=== PATIENT | male | born 1970 | race Hispanic/Latino ===

== ENCOUNTER → 2023-01-08 | Outpatient (CLI) | payer OTHER | END | disposition home or self-care (01) | LOC: RAH 15:20 | PROVIDERS: ATTEND Internal Medicine | DX: M51.26 Other intervertebral disc displacement, lumbar region (principal) | CPT/HCPCS: 72100 ==

== ENCOUNTER 2023-03-09 08:28 | Emergency (ER) | payer BC, OTHER ==
[~2023-03-09] VITALS: Ht 175.3 cm; Wt 104.3 kg
[2023-03-09 08:29] VITALS: BP 138/81; PULSE 68; RESP 18
[2023-03-09] MEDS ORDERED: FLUORESCEIN SODIUM 1 STRIP STRIP ONE (08:57)
[2023-03-09] MEDS ORDERED: TETRACAINE HCL 0.5% 4 ML OPHTH SOLN ONE (08:58)
[2023-03-09] MEDS ORDERED: KETO5DRO40 OD (09:53)
[2023-03-09] MEDS ORDERED: CILO2.5OS OS (09:53)
== END 2023-03-09 10:09 | disposition home or self-care (01) ==
LOC: EDH 08:28
DX: S05.02XA Injury of conjunctiva and corneal abrasion without foreign body, left eye, initial encounter (principal); E78.00 Pure hypercholesterolemia, unspecified; X58.XXXA Exposure to other specified factors, initial encounter; Y93.89 Activity, other specified; Y92.89 Other specified places as the place of occurrence of the external cause; Y99.8 Other external cause status

== ENCOUNTER → 2024-10-17 | Outpatient (CLI) | payer MEDICARE ==
[~2024-10-17] MED LIST: CILO2.5OS OS; KETO5DRO40 OD
[2024-10-17 10:18] LABS: CREATININE 0.6 mg/dL (0.5-1.3)
== END | disposition home or self-care (01) ==
LOC: LAB 09:43
PROVIDERS: ATTEND Internal Medicine Gastroenterology
DX: R10.31 Right lower quadrant pain (principal)
CPT/HCPCS: 36415; 82565; 84520

== ENCOUNTER → 2024-10-24 | Outpatient (CLI) | payer MEDICARE ==
[~2024-10-24] MED LIST changes: +IOHEXOL 350 MG/ML 100ML INFUS..BTL IV ONE
--- NOTE | 2024-10-24 11:23 | HMCIMG ---
CT ABDOMEN WITHOUT AND WITH CONTRAST. CT PELVIS WITHOUT AND WITH CONTRAST INDICATION: Stomach pain for one month TECHNIQUE: Routine transaxial images at 5 mm slice thickness were obtained prior to the administration of contrast material through the abdomen only, and after the intravenous infusion of 100 mL of Omnipaque 350 through the abdomen and pelvis without adverse effects. Delayed images of the abdomen and pelvis were also obtained. Coronal and sagittal reformatted imaging acquired for interpretation. Oral contrast was administered. CT was performed with one or more of the following dose reduction techniques: Automated exposure control, adjustment of the mA and/or kV according to patient size, or use of iterative reconstruction technique. COMPARISON: None FINDINGS: Diagnostic sensitivity of this examination is limited by patient motion artifact. ABDOMEN: Heart size is normal. Visible lung bases are clear. The liver is normal in size and smooth in contour without biliary duct dilation. 2.1 cm simple cyst within the anterior right hepatic lobe. The spleen is normal in size without lesions. The gallbladder appears normal. The pancreas appears normal without pancreatic duct dilation. The adrenal glands appear normal. Both kidneys appear unremarkable. Cortical nephrograms are symmetric and normal in appearance bilaterally. No significant abdominal, retrocrural or retroperitoneal adenopathy noted.No evidence for intra-abdominal free air or organized fluid collection. No aortic aneurysmal dilation or dissection identified. PELVIS: No evidence for free air or organized pelvic fluid collection. No significant pelvic adenopathy detected. Several diverticula along the sigmoid colon. Terminal ileum appears unremarkable. The appendix is absent. The urinary bladder appears unremarkable. Mild thoracolumbar spondylosis.. Extremely shallow posterior disc displacement at the L5-S1 level. IMPRESSION: Limitations as reported. Normal CT appearance of the stomach. Sigmoid diverticulosis without diverticulitis or colitis.
== END | disposition home or self-care (01) ==
LOC: RAH 09:04
PROVIDERS: ATTEND Internal Medicine Gastroenterology
DX: K57.30 Diverticulosis of large intestine without perforation or abscess without bleeding (principal); R10.31 Right lower quadrant pain; K76.89 Other specified diseases of liver
CPT/HCPCS: 74178; Q9967

== ENCOUNTER 2025-05-28 12:03 | Emergency (ER) | payer MEDICARE, OTHER ==
[~2025-05-28] VITALS: Ht 167.6 cm; Wt 102.5 kg
[~2025-05-28 12:03] MED LIST changes: -IOHEXOL 350 MG/ML 100ML INFUS..BTL IV ONE; +KETO-108 OD; -KETO5DRO40 OD
--- NOTE | 2025-05-28 12:11 | ERN ---
ED Note History of Present Illness Stated Complaint: URINARY TRACT INFECTION Chief Complaint: UTI without Fever Time Seen by MD: 12:06 Dictation: PATIENT IS A 54-YEAR-OLD MALE COMING IN TODAY WITH COMPLAINTS OF URINARY URGENCY AND FREQUENCY WITH MILD DYSURIA FOR THE LAST TWO WEEKS. NO NAUSEA NO VOMITING NO DIARRHEA NO FLANK PAIN. HE HAS ALREADY BEEN TO SEE HIS PRIMARY CARE DOCTOR, PRESCRIBED AMOXICILLIN T.I.D.. SEE FOR FURTHER EVALUATION AND TREATMENT. STATES HE HAS NOT SEEN A UROLOGIST, DENIES PROSTATE PROBLEM Allergies: Coded Allergies: No Known Allergies (Unverified Allergy, Unknown, 03/09/23) Home Meds Active Scripts Ketorolac Tromethamine (Ketorolac Tromethamine) 5 Ml Drops, 1 DROP OD QIDP PRN for PAIN, #1 BOT Prov:KANDI RAMIRES MD 03/09/23 Ciprofloxacin HCl (Ciloxan 0.3% Ophth Soln) 20 Drop/Ml Opsol, 2 DROP OS Q0THCLQ for 5 Days, #1 BOT Prov:KANDI RAMIRES MD 03/09/23 Past Medical History Past Medical History: Arthritis, High Cholesterol, Hypertension Surgical History: Appendectomy, Other Surgical History Other: BILATERAL KNEE SX RN Note Reviewed/Agreed w/PFSH: Yes Review of System Dictation CONSTITUTIONAL: NEGATIVE EXCEPT FOR HPI HEAD/FACE: NEGATIVE EXCEPT FOR HPI EENT: NEGATIVE EXCEPT FOR HPI RESPIRATORY: NEGATIVE EXCEPT FOR HPI GASTROINTESTINAL/ABDOMINAL: NEGATIVE EXCEPT FOR HPI GENITOURINARY: NEGATIVE EXCEPT FOR HPI URINARY URGENCY AND FREQUENCY WITH DYSURIA TWO WEEKS MUSCULOSKELETAL: NEGATIVE EXCEPT FOR HPI INTEGUMENTARY: NEGATIVE EXCEPT FOR HPI NEUROLOGICAL/PSYCH: NEGATIVE EXCEPT FOR HPI HEMATOLOGIC/LYMPHATIC: NEGATIVE EXCEPT FOR HPI ALL SYSTEMS NEGATIVE, EXCEPT NOTED ABOVE. 13 POINT REVIEW OF SYSTEMS ASSESSED AND ALL NEGATIVE EXCEPT FOR ABOVE. Initial Vital Sign VS Vital Signs Date Time Temp Pulse Resp B/P (MAP) Pulse Ox O2 Delivery O2 Flow Rate FiO2 05/28/25 12:06 97.7 75 16 122/74 98 Room Air 0 05/28/25 15:30 21 Physical Exam Dictation VITAL SIGNS REVIEWED GENERAL APPEARANCE: ALERT, ORIENTED X 3, NO ACUTE DISTRESS, WELL DEVELOPED, NOURISHED. OBESE HEAD AND FACE: NON-TRAUMATIC. EYES: PERRL, PINK CONJUNCTIVAS, EYELID NO TRAUMA, ANTERIOR CHAMBER WITH ARCUS SENILIS. EARS: PINNAS INTACT AND NO SIGNS OF TRAUMA OR ERYTHEMA EAR CANALS CLEAR AND NO DISCHARGE TM NO ERYTHEMA NOSE: NO DISCHARGE, NO BLEEDING. OROPHARYNX: MOUTH NORMAL, TONGUE PINK, PHARYNX CLEAR,NO ERYTHEMA, TONSILS NO EXUDATES, NO ABSCESSES NOTED, MUCOUS MEMBRANE MOIST NECK: SUPPLE, NON-TENDER, NO THYROMEGALY, NO MASSES, NO JVD, NO BRUITS BREAST:DEFERRED CHEST:NO TENDERNESS, NO CREPITUS, NO PARADOXICAL MOVEMENT, NO RETRACTIONS LUNGS:CLEAR, WELL-VENTILATED, SYMMETRIC, NO RALES, NO WHEEZING, NO RHONCHI, NO STRIDOR, GOOD BREATH SOUNDS BILATERALLY HEART: REGULAR RATE, REGULAR RHYTHM, NO MURMUR, NO GALLOPS VASCULAR: NO PERIPHERAL EDEMA, ABDOMEN: SOFT, POSITIVE BOWEL SOUNDS, NONDISTENDED, NO GUARDING, NONTENDER, NO REBOUND, NO MASSES NO HEPATOMEGALY, NO SPLENOMEGALY, NO GUILLAUME'S SIGN, NO HERNIAS. RECTAL: DEFERRED GENITAL: DEFERRED NEUROLOGICAL: NORMAL SPEECH, MOTOR FUNCTION INTACT, SENSORY FUNCTION INTACT MUSCULOSKELETAL: NECK NONTENDER, FULL RANGE OF MOTION, BACK NONTENDER, FULL RANGE OF MOTION, EXTREMITIES: NONTENDER, FULL RANGE OF MOTION SKIN: COLOR PINK, DRY, NO TURGOR, NO RASH, NO LACERATIONS, NO ABRASIONS, NO CONTUSIONS. LYMPHATIC: DEFERRED Results (Laboratory/Radiology) Laboratory/Radiology Laboratory Tests Test 05/28/25 12:15 05/28/25 12:58 White Blood Count 4.6 K/uL (4.8-10.8) L Red Blood Count 4.73 MIL/uL (4.50-6.20) Hemoglobin 14.0 g/dL (14.0-18.0) Hematocrit 42.2 % (42-54) Mean Corpuscular Volume 89.2 fL (79-99) Mean Corpuscular Hemoglobin 29.6 pg (27.0-33.0) Mean Corpuscular Hemoglobin Concent 33.2 g/dL (32.0-36.0) Red Cell Distribution Width 13.0 % (11.0-15.5) Platelet Count 206 K/uL (130-400) Mean Platelet Volume 9.7 fL (7.5-10.5) Immature Granulocyte % (Auto) 0.4 % (0-1) Neutrophils (%) (Auto) 51.7 % (40.0-77.0) Lymphocytes (%) (Auto) 32.8 % (21.0-51.0) Monocytes (%) (Auto) 9.4 % (3.0-13.0) Eosinophils (%) (Auto) 5.3 % (0.0-8.0) Basophils (%) (Auto) 0.4 % (0.0-5.0) Neutrophils # (Auto) 2.4 K/uL (1.8-7.7) Lymphocytes # (Auto) 1.5 K/uL (1.0-4.8) Monocytes # (Auto) 0.4 K/uL (0.1-1.0) Eosinophils # (Auto) 0.24 K/uL (0.00-0.70) Basophils # (Auto) 0.02 K/uL (0.00-0.20) Absolute Immature Granulocyte (auto 0.02 K/uL (0-1) Nucleated Red Blood Cells 0.0 % (0.0-0.19) Sodium Level 141 mmol/L (136-145) Potassium Level 4.1 mmol/L (3.5-5.1) Chloride Level 105 mmol/L (101-111) Carbon Dioxide Level 30 mmol/L (21-32) Blood Urea Nitrogen 6 mg/dL (7-18) L Creatinine 0.6 mg/dL (0.5-1.3) Glomerular Filtration Rate Calc 115 mL/min (>90) Random Glucose 169 mg/dL (70-105) H Lactic Acid Level 1.4 mmol/L (0.8-2.5) Total Calcium 8.2 mg/dL (8.5-10.1) L Urine Color COLORLESS (YELLOW) Urine Appearance CLEAR (CLEAR) Urine pH 7.0 (5.0-8.0) Urine Specific [place] 1.004 (1.001-1.031) Urine Protein NEGATIVE mg/dL (NEGATIVE) Urine Glucose (UA) NEGATIVE mg/dL (NEGATIVE) Urine Ketones NEGATIVE mg/dL (NEGATIVE) Urine Occult Blood NEGATIVE (NEGATIVE) Urine Nitrate NEGATIVE (NEGATIVE) Urine Bilirubin NEGATIVE mg/dL (NEGATIVE) Urine Urobilinogen 0.2 mg/dL (0.2-1.0) Urine Leukocyte Esterase NEGATIVE Lakshmi/uL Labs Reviewed?: Yes ED Course ED Course Orders Procedure Category Date Status Time Cbc With Differential LAB 05/28/25 Complete 12:08 Urinalysis Profile LAB 05/28/25 Complete 12:08 Basic Metabolic Panel LAB 05/28/25 Complete 12:08 Blood Cult SIMON 05/28/25 In Process 12:08 Lactic Acid LAB 05/28/25 Complete 12:08 Vital Signs Date Time Temp Pulse Resp B/P (MAP) Pulse Ox O2 Delivery O2 Flow Rate FiO2 05/28/25 15:30 97.5 58 17 130/80 100 Room Air* 0 21 05/28/25 12:06 97.7 75 16 122/74 98 Room Air 0 1540/PATIENT DISCHARGED HOME WITH COMPLETELY UNREMARKABLE LABS TO INCLUDE URINALYSIS. GIVEN PYRIDIUM FOR DYSURIA AND HAVE HIM FOLLOW UP WITH HIS DOCTOR Medical Decision Making MDM MDM: DIFFERENTIAL DIAGNOSIS: CYSTITIS/ACUTE CYSTITIS WITH HEMATURIA/PYELONEPHRITIS/ELECTROLYTE IMBALANCE/DEHYDRATION/ANEMIA RATIONALE: TESTS CONSIDERED AND ORDERED SECONDARY TO SHARED DECISION MAKING INCLUDE: LABS PREVIOUS OUTSIDE RECORDS REVIEWED: OLD ER VISITS. RISK OF COMPLICATION AND/OR MORBIDITY OR MORTALITY OF PATIENT MANAGEMENT: NONE MEDICATIONS-PER MEDICATION RECONCILIATION NEED FOR HOSPITALIZATION: PATIENT DOES NOT MEET CRITERIA FOR HOSPITALIZATION. NONE NEED FOR EMERGENCY MAJOR/MINOR SURGERY: NO THERE ARE NO SOCIAL CONCERNS WITH THIS PATIENT. PRESCRIPTION DRUG MANAGEMENT PYRIDIUM WHO PRESCRIPTIONS WILL INCLUDE SYMPTOMATIC CARE PATIENT'S PRIOR EXTERNAL MEDICAL RECORDS FROM OTHER ER VISITS WERE REVIEWED BY ME INDICATED. PRIOR TESTING AND RESULTS FROM PREVIOUS VISITS WERE REVIEWED. PRIOR TESTS WERE TAKEN INTO ACCOUNT WITH MEDICAL DECISION MAKING AND RESOURCE UT ILIZATION, INDEPENDENT HISTORIAN/HISTORIANS WERE USED TO OBTAIN COMPLETE MEDICAL HISTORY. I INDEPENDENTLY INTERPRETED THE TEST THAT WERE PERFORMED, RESULTS WERE REVIEWED BY ME AND CONSIDERED FINDINGS ON RADIOLOGY IF ORDERED. MEDICAL MANAGEMENT AND EXAMINATION INTERPRETATION DISCUSSIONS WERE HAD BY ME WITH OTHER QUALIFIED HEALTHCARE PROFESSIONALS INDICATED FOR THE PATIENT'S CAR E. DX & DISP Disposition: Discharge Departure Impression: Primary Impression: Dysuria Additional Impression: Mild dehydration Condition: Stable Scripts Phenazopyridine HCl (Pyridium) 200 Mg Tab 200 MG PO TIDPC for 3 Days, #9 TAB TAKE WITH FOOD TO PREVENT STOMACH UPSET. Prov: LIZZTETE BRADY [employer]ONNAGE COMPILATION CLERK 05/28/25 Additional Instructions: FOLLOW-UP WITH PRIMARY CARE PROVIDER IN 1 TO 2 DAYS. TAKE MEDICATIONS DIRECTED HERE IN THE EMERGENCY ROOM. OKAY TO CONTINUE HOME MEDICATIONS UNLESS OTHERWISE DISCUSSED DURING YOUR VISIT IN THE EMERGENCY ROOM TODAY. RETURN TO YOUR NEAREST EMERGENCY ROOM IF SYMPTOMS WORSEN OR IF THERE IS NO IMPROVEMENT. CALL 911 IF YOU NEED IMMEDIATE ASSISTANCE. TAKE TYLENOL OR MOTRIN OVE U-TIA-BHRZZNI NEEDED AND IF NO CONTRAINDICATIONS ARE PRESENT. INCREASE ORAL HYDRATION. A WOUND CULTURE OR URINE CULTURE WAS ORDERED HERE IN THE EMERGENCY ROOM DEPARTMENT PLEASE FOLLOW-UP WITH PRIMARY CARE PROVIDER AND ADVISE THEM TO GET REPEAT PORTS FROM OUR FACILITY. IF YOU HAD ANY LYNNE WRAP/SPLINTS THAT WERE APPLIED HERE, PLEASE DO NOT REMOVE THEM UNTIL YOU SEE YOUR PRIMARY CARE OR SPECIALTY. CONTINUE ALL MEDICATIONS AND TREATMENTS FROM YOUR DOCTOR. INCREASE YOUR WATER INTAKE. REMEMBER THAT URINE WERE BE TURNED ORANGE RED WITH PYRIDIUM. SEE YOUR PRIMARY CARE DOCTOR TOMORROW OR THE NEXT DAY FOR FOLLOW UP AND MANAGEMENT. Referrals: WILLIAM JIMÉNEZ MD (PCP) Time of Disposition: 15:42 I have reviewed the case, and I agree with, Diagnosis and Plan LIZZETTE BRADY May 28, 2025 12:11
[2025-05-28 12:27] LABS: IMMATURE GRANULOCYTE ABSOLUTE 0.02 K/uL (0-1); NUCLEATED RED BLOOD CELLS 0.0 % (0.0-0.19); PLATELET COUNT (AUTO) 206 K/uL (130-400); RED BLOOD CELL COUNT(AUTO) 4.73 MIL/uL (4.50-6.20); RED CELL DISTRIBUTION WIDTH 13.0 % (11.0-15.5); WHITE BLOOD COUNT (AUTO) 4.6 K/uL (4.8-10.8)
[2025-05-28 12:34] LABS: CREATININE 0.6 mg/dL (0.5-1.3); GLOMERULAR FILTR. RATE CALC 115.0 mL/min (>90); GLUCOSE,RANDOM 169.0 mg/dL (70-105); SODIUM SERUM 141.0 mmol/L (136-145); UREA NITROGEN, BLOOD 6.0 mg/dL (7-18)
[2025-05-28 13:05] LABS: APPEARANCE,URINE CLEAR (CLEAR); GLUCOSE, URINE (UA) NEGATIVE (NEGATIVE); LEUKOCYTE ESTERASE ,URINE NEGATIVE Leu/uL (NEGATIVE); NITRATE,URINE NEGATIVE (NEGATIVE); OCCULT BLOOD,URINE NEGATIVE (NEGATIVE)
[2025-05-28 13:12] LABS: ADD UA MICROSCOPIC NO
[2025-05-28 15:30] VITALS: BP 130/80; PULSE 58; RESP 17; TEMP 97.6; O2SAT 100
[2025-05-28] MEDS ORDERED: PHEN-847 PO (15:42)
== END 2025-05-28 16:02 | disposition home or self-care (01) ==
LOC: EDH 12:03
DX: R30.0 Dysuria (principal); E86.0 Dehydration; E78.00 Pure hypercholesterolemia, unspecified; I10 Essential (primary) hypertension; M19.90 Unspecified osteoarthritis, unspecified site; Z90.49 Acquired absence of other specified parts of digestive tract
CPT/HCPCS: 36415; 80048; 81003; 83605; 85025; 87040; 99283